=== PATIENT | female | born 1945 | race Caucasian/White ===

== ENCOUNTER → 2023-05-10 | Outpatient (REF) | payer MEDICARE, OTHER | LOC: M SFHCDERM 17:25 | PROVIDERS: ATTEND Dermatology | DX: C44.722 Squamous cell carcinoma of skin of right lower limb, including hip (principal) ==

== ENCOUNTER → 2023-06-02 | Outpatient (CLI) | payer MEDICARE, OTHER ==
[~2023-06-02] MED LIST: AMLO2.5T3 PO; ATOR40TA75 PO; CLON0.5T2 PO; ERGO500029 PO; LEVO150T7 PO; LOSA100T46 PO; OMEP40CA5 PO
== END ==
LOC: M ONCR 10:27
PROVIDERS: ATTEND General Practice
DX: C44.722 Squamous cell carcinoma of skin of right lower limb, including hip (principal); D64.9 Anemia, unspecified; I10 Essential (primary) hypertension; Z71.2 Person consulting for explanation of examination or test findings; Z85.3 Personal history of malignant neoplasm of breast; Z98.890 Other specified postprocedural states

== ENCOUNTER → 2023-08-11 | Outpatient (REF) | payer MEDICARE, OTHER | LOC: M LAB REF 16:23 | PROVIDERS: ATTEND Dermatology | DX: T14.90XD Injury, unspecified, subsequent encounter (principal) ==

== ENCOUNTER → 2023-09-15 | Outpatient (REF) | payer MEDICARE, OTHER | LOC: M SFHCDERM 17:41 | PROVIDERS: ATTEND Dermatology | DX: L57.8 Other skin changes due to chronic exposure to nonionizing radiation (principal); T14.90XD Injury, unspecified, subsequent encounter; L82.1 Other seborrheic keratosis ==

== ENCOUNTER → 2023-10-18 | Outpatient (REF) | payer MEDICARE, OTHER | LOC: M SFHCDERM 17:56 | PROVIDERS: ATTEND Dermatology | DX: T66.XXXA Radiation sickness, unspecified, initial encounter (principal) ==